=== PATIENT | male | born 1970 | race Caucasian/White ===

== ENCOUNTER 2016-11-27 07:06 | Emergency (ER) | payer OTHER ==
[2016-11-27 08:45] VITALS: BP 132/92
== END 2016-11-27 09:40 | disposition home or self-care (01) ==
LOC: ED 07:06
DX: M25.571 Pain in right ankle and joints of right foot (principal); M79.674 Pain in right toe(s); M10.9 Gout, unspecified; I10 Essential (primary) hypertension
CPT/HCPCS: J1885

== ENCOUNTER → 2017-10-16 | Outpatient (CLI) | payer OTHER ==
[2017-10-16 13:09] LABS: BASOPHIL % 1.9 % (0-2); PLATELET COUNT 272 x10^3mcL (130-400); RED CELL DISTRIBUTION WIDTH 12.5 % (11.5-14.5)
[2017-10-16 14:22] LABS: ALBUMIN 4.3 g/dL (3.4-5.0); ALKALINE PHOSPHATASE 167 U/L (46-116); ALT/SGPT 111 U/L (16-63); AST/SGOT 59 U/L (15-37); BILIRUBIN TOTAL 0.3 mg/dL (0.20-1.00); CALCIUM 9.5 mg/dL (8.5-10.1); CARBON DIOXIDE 30.5 mmol/L (21-32); CHLORIDE SERUM 97 mmol/L (98-107); GFR1 > 60 mL/min; GLUCOSE SERUM 119 mg/dL (74-106); HDL CHOLESTEROL 39 mg/dL (40-60); POTASSIUM SERUM 3.2 mmol/L (3.5-5.1); SODIUM SERUM 139 mmol/L (136-145); TOTAL PROTEIN, SERUM 7.8 g/dL (6.4-8.2)
[2017-10-16 14:24] LABS: CHOLESTEROL 226 mg/dL (<200); CHOLESTEROL/HDL RATIO 5.8; TRIGLYCERIDES 339 mg/dL (<150)
[2017-10-17 06:28] LABS: VITAMIN D 25-HYDROXY 25.7 ng/mL (30.0-100.0)
[2017-10-17 13:18] LABS: microalbumin:creatinine ratio 14.3 (0.0-30.0)
== END | disposition home or self-care (01) ==
LOC: LB 12:28
DX: K76.0 Fatty (change of) liver, not elsewhere classified (principal); M10.9 Gout, unspecified; E78.2 Mixed hyperlipidemia; I10 Essential (primary) hypertension; F41.9 Anxiety disorder, unspecified; M79.7 Fibromyalgia; G89.4 Chronic pain syndrome; F10.10 Alcohol abuse, uncomplicated; K75.9 Inflammatory liver disease, unspecified; E11.9 Type 2 diabetes mellitus without complications
CPT/HCPCS: 84153